=== PATIENT | male | born 1950 | race Caucasian/White ===

== ENCOUNTER 2016-07-18 16:39 | Inpatient (IN) | payer OTHER ==
--- NOTE | ~2016-07-18 | HP ---
Unit #: [id number] #: [id number] Patient: TRAVIS STOVALL [id number] [facility]. [place], [place] [address] [id number] I MR#: [id number] NAME: TRAVIS STOVALL. ROOM: 10987 Age: 66 Sex: M Admission Date: 07/18/2016 : 1950 Attending Physician: Holly Syed M.D. Primary Care Physician: Rufino Jacob M.D. HISTORY AND PHYSICAL CHIEF COMPLAINT Breakthrough seizures, weakness. 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 On workup, the patient was found to have massive pulmonary embolism, underwent "radiation," started on chronic anticoagulation, currently on Xarelto. He lives at home with a nephew and niece, as per him. He said he had a seizure today and was brought to the emergency room here for breakthrough seizures. The patient had a CT scan initially, which showed questionable petechial hemorrhage in the right parietal lobe lesion, recommend further MRI. MRI was done but secondary to motion artifact they did not rule out intracranial bleed. They recommended repeat MRI in the morning. We discussed with the radiologist regional psychiatric director. They recommend repeat MRI. The patient is otherwise alert, awake. He is denying any complaint right now. No chest pain. No cough. No fever. No chills. PAST MEDICAL HISTORY 1. History of seizures. 2. History of non-small cell lung cancer with metastasis to brain status post chemoradiation, follows with Dr. Jarrett. 3. History of COPD. 4. History of hypertension in the past. 5. History of GERD. 6. History of massive pulmonary embolism in February requiring IVC filter placement. 7. History of DVT. PAST SURGICAL HISTORY 1. History of cholecystectomy. 2. Bronchoscopy. 3. History of IVC filter. SOCIAL HISTORY The patient has history of 30 pack-year smoking but quit smoking. Currently lives at home with a niece and nephew. FAMILY HISTORY Noncontributory. ALLERGIES No known drug allergies. Unit #: [id number] #: [id number] Patient: TRAVIS STOVALL MEDICATIONS FROM HOME 1. DuoNeb q.6 hours. 2. Florastor 250 mg b.i.d. 3. Dexamethasone 4 mg b.i.d. 4. Depakote 500 b.i.d. 5. Vimpat 50 mg b.i.d. 6. Keppra 1,500 mg b.i.d. 7. Lipitor 10 mg daily. 8. Protonix 40 mg daily. 9. Midodrine 5 mg 3 tablets daily. 10. Also, the patient is on Xarelto. Will hold Xarelto at this time. NOTE: Currently medications are not available. Medications from February are above. REVIEW OF SYSTEMS CONSTITUTIONAL: No fever. No chills. CARDIOVASCULAR: No chest pain. No diaphoresis. PULMONARY: No cough. No wheezing. GI: No nausea or vomiting. PHYSICAL EXAMINATION GENERAL: Middle-aged man lying in bed comfortably, currently not in any distress. He is alert, awake, oriented x2. CURRENT VITALS: Temperature - afebrile. Heart rate 80, respirations 16, blood pressure 118/76. HEENT: Pupils are equal and reactive to light. Head is normocephalic and atraumatic. NECK: Neck is supple. No JVD. Trachea midline. HEART: S1, S2. Regular rate and rhythm. LUNGS: Poor air entry but no rhonchi, no wheezing. ABDOMEN: Abdomen is soft, nontender. EXTREMITIES: Inspection is normal. No cyanosis. No clubbing. No edema. DIAGNOSTIC STUDIES LABORATORY WORKUP: UA is unremarkable. Glucose 129. Troponin less than 0.05. Chemistry - Sodium 138, potassium 3.7, glucose 113, BUN 13, creatinine 0.8. LFTs within normal limits. INR is 1.1. White count is 6.8, hemoglobin 13, hematocrit 39, platelets 157. CARDIOVASCULAR: EKG - Sinus tachycardia. IMAGING: CT scan - No new abnormality. They suspect questionable hemorrhage in right parietal lobe lesion. MRI - Nondiagnostic. ASSESSMENT AND PLAN 1. Breakthrough seizures. Will continue home medications of Keppra, Vimpat and Depakote. Ask neurology to see. 2. Abnormal CT scan with possible petechial hemorrhage right parietal lobe lesion. MRI was not diagnostic. Will admit to rule out intracranial bleed with repeat MRI in the morning. Hold Xarelto at this time. 3. History of non-small cell lung cancer with metastasis to brain status post chemoradiation. 4. History of massive pulmonary embolism and DVT status post IVC filter, Unit #: [id number] #: [id number] Patient: TRAVIS STOVALL on Xarelto. 5. History of COPD. 6. History of GERD. Dictated by Khanh Becker/claudia TD: 07/19/2016 08:15 JOB #: [id number] HISTORY AND PHYSICAL X X HISTORY AND PHYSICAL
--- NOTE | ~2016-07-18 | CR72 ---
[facility] A Service of [facility] & [facility] RADIOLOGY TEXT RESULTS PATIENT: TRAVIS STOVALL LOCATION: [facility] [id number] : [birth year] UNIT #: [id number] AGE: [address]: Holly Syed MD SEX: M ORDER DR: [id number] [facility] [address] [place], [place] [address] [id number] I MR#: [id number] Acc #: [id number] NAME: TRAVIS STOVALL. : 1950 SEX: M STUDY DATE/TIME: 07/19/2016 19:25 UNIT: [facility] ROOM: 81413 STUDY DESCRIPTION: CR Chest Single View Portable Attending Physician: Holly Syed M.D. Ordering Physician: Wes Villatoro M.D. Primary Care Physician: Rufino Jacob M.D. MEDICAL IMAGING REPORT This report is preliminary unless electronic signature is present EXAM Portable chest HISTORY Congestion today FINDINGS Compared to 04/24/2016, there is progressive volume loss in the left hemithorax with mild mediastinal shift to the left suggesting at least partial atelectasis of the left lower lung. There is also increased left perihilar and left upper mediastinal density which could be secondary to mass or adenopathy. Small to moderate-sized left pleural effusion has increased in size. The right lung is clear. The right IJ port catheter tip is in the mid SVC. Dictated by... Jairo Lyons M.D. THIS IS AN ELECTRONICALLY VERIFIED REPORT Jairo Lyons M.D. at 07/20/2016 1:57 PM DFL/to TD: 07/20/2016 11:56 JOB #: [id number] MEDICAL IMAGING REPORT COPY
--- NOTE | ~2016-07-18 | DS ---
Unit #: [id number] #: [id number] Patient: TRAVIS STOVALL [id number] [place], [place] [address] [id number] I MR#: [id number] NAME: TRAVIS STOVALL ROOM: [facility] Age: 66 Sex: M Admission Date: 07/18/2016 : 1950 Discharge Date: 07/21/2016 Attending Physician: Kenney Cee M.D. Primary Care Physician: Rufino Jacob M.D. DISCHARGE SUMMARY CONSULTANTS 1. Dr. Jarrett, Oncology. 2. Dr. Montgomery, Neurology. ADMITTING DIAGNOSIS Breakthrough seizures. DISCHARGE DIAGNOSES 1. Breakthrough seizures. 2. Hospice. HISTORY OF PRESENTING ILLNESS/HOSPITAL COURSE Patient is a 66-year-old male with a past medical history of nonsmall cell lung cancer with metastasis to the brain, history of COPD, history of PE, on anticoagulation, status post radiation, who presented to the emergency room with the chief complaint of breakthrough seizures. He did have an MRI for evaluation of brain mets during the hospital course. During the hospital course, he was seen by Neurology and Oncology. Due to his poor prognosis, patient and his family finally decided to make him Hospice. On the , he was discharged to Hospice, and Hospice protocol was initiated. Dictated by.Khanh Zavala/cruz TD: 09/17/2016 14:06 JOB #: [id number] DISCHARGE SUMMARY Page 1 of 1 X X DISCHARGE SUMMARY
--- NOTE | ~2016-07-18 | MR18 ---
[facility] A Service of [facility] & [facility] RADIOLOGY TEXT RESULTS PATIENT: TRAVIS STOVALL LOCATION: [facility] [id number] : [birth year] UNIT #: [id number] AGE: [address]: Holly Syed MD SEX: M ORDER DR: [id number] [facility] [address] [place], [place] [address] [id number] I MR#: [id number] Acc #: [id number] NAME: TRAVIS STOVALL. : 1950 SEX: M STUDY DATE/TIME: 07/18/2016 20:43 UNIT: [facility] ROOM: 12962 STUDY DESCRIPTION: MR Brain Wo Contrast Attending Physician: Holly Syed M.D. Primary Care Physician: Rufino Jacob M.D. MRI CENTER REPORT This report is preliminary unless electronic signature is present. EXAM Brain MRI without HISTORY Breakthrough seizures known metastatic disease from non-small cell lung cancer repeat MRI due to motion thallium and Ativan given per technologist but patient still combative. COMMENTS Noncontrast MRI brain obtained on a 1.5T system. It is again motion limited despite sedation as indicated above. Comparison is made to the study from last evening with and without contrast. There is less motion on the current study but contrast was not re-administered and therefore the current study does not reassess well the intracranial metastatic disease. Please refer back to last night's report. Nothing to suggest a recent ischemic insult. Patient has known metastasis to the right posterior frontal right anterior parietal lobe seen about 1.8 cm in diameter on this study with surrounding vasogenic edema. There is mild local mass effect but there is no midline shift. There is no hydrocephalus. The known metastasis in the right cerebellar hemisphere seen as an area of vasogenic edema. The known right temporal lobe metastasis is not seen well on a noncontrast study. No extraaxial fluid collection. There is a component of preexisting probable sequelae of small vessel disease. The major intracranial flow voids are maintained. The mastoid air cells show small amount of fluid or inflammatory change on the right. There is some mucosal disease and partial opacification of the paranasal sinuses with tiny air-fluid levels. Patient has had cataract surgery on the right. No gross acute intracranial hemorrhage. IMPRESSION 1. Noncontrast MRI brain obtained again with significant motion despite sedation. Lack of contrast limits evaluation for intracranial metastatic disease. No significant change appreciated on comparison [facility] A Service of [facility] & [facility] RADIOLOGY TEXT RESULTS PATIENT: TRAVIS STOVALL LOCATION: [facility] [id number] : [birth year] UNIT #: [id number] AGE: [address]: Holly Syed MD SEX: M ORDER DR: to last evening's study. The largest metastasis is again seen in the right posterior frontal right anterior parietal lobe with surrounding vasogenic edema but no midline shift and there is nothing to suggest a recent ischemic insult. If imaging to restage the patient's malignancy is needed it is best performed when the patient is able to cooperate as a with and without contrast study. This does not need to be done as an emergent procedure. Dictated by... Lizy Jimenez M.D. THIS IS AN ELECTRONICALLY VERIFIED REPORT Lizy Jimenez M.D. at 07/20/2016 6:19 AM JUAN/bryan TD: 07/19/2016 22:32 JOB #: [id number] MRI CENTER REPORT COPY
--- NOTE | ~2016-07-18 | MR17 ---
[facility]. [facility] A Service of [facility] & [facility] RADIOLOGY TEXT RESULTS PATIENT: TRAVIS STOVALL LOCATION: [address] [place] [address]- : [birth year] UNIT #: [id number] AGE: [address]: Kenney Cee MD SEX: M ORDER DR: [id number] [facility] [address] [place], [place] [address] [id number] I MR#: [id number] Acc #: [id number] NAME: TRAVIS STOVALL : 1950 SEX: M STUDY DATE/TIME: 07/18/2016 20:43 UNIT: [facility] ROOM: 37530 STUDY DESCRIPTION: MR Brain WWo Contrast Attending Physician: Holly Syde M.D. Ordering Physician: Carolann Morales M.D. Primary Care Physician: Rufino Jacob M.D. MRI CENTER REPORT This report is preliminary unless electronic signature is present. EXAM MRI brain with and without. DATE OF EXAM 07/18/2016 HISTORY Known intracranial metastatic disease from lung cancer with weakness and seizure today. COMMENT MRI of the brain was attempted prior to and during the intravenous administration of 20 mL of MultiHance. This is a very motion limited exam. COMPARISON STUDIES Comparison is made to the exam from 06/05/2016. FINDINGS There is nothing to suggest a recent ischemic insult on the diffusion series. Redemonstrated is the known mass lesion centered in the right posterior frontal lobe with the rim like enhancement and measuring about 2.2 cm AP dimension. On comparison to the prior study, it is probably slightly larger measuring 1.8 cm previously but it is difficult to compare accurately because of motion on the current exam. There is associated surrounding vasogenic edema in the right posterior frontal and right anteroparietal lobes. This is similar to prior. Also redemonstrated is a small ring enhancing metastasis right cerebellar hemisphere about 7 mm in diameter. It is not appreciably changed in size. The associated vasogenic edema is more conspicuous, and may be slightly worse. Previously noted right anterior temporal lobe lesion is poorly seen on the current study perhaps 8 mm dimension. No definitely new intracranial STS. [facility] A Service of [facility] & [facility] RADIOLOGY TEXT RESULTS PATIENT: TRAVIS STOVALL LOCATION: [facility] 466-01 : [birth year] UNIT #: [id number] AGE: [address]: Kenney Cee MD SEX: M ORDER DR: metastases are seen on this very limited exam. Otherwise, the major intracranial flow voids are maintained. The patient has had cataract surgery on the right. There is mild mucosal disease in the paranasal sinuses. The mastoid air cells are clear. There is no extraaxial fluid collection, and there is no midline shift or hydrocephalus. IMPRESSION Redemonstration of known intracranial metastatic disease. The current study is unfortunately quite limited by patient motion. The largest lesion is again identified at the right posterior frontal and right anterior parietal lobe. It measures about 2.2 cm in diameter currently as compared to 1.8 cm in diameter previously it may be slightly larger, but again the motion makes it difficult to accurately compare the current prior study. Redemonstrated is surrounding vasogenic edema similar to prior. No definitely new intracranial metastases seen but if restaging is indicated, I would consider repeating this examination when the patient is better able to cooperate. Also redemonstrated is the known small lesion in the right cerebellar hemisphere, and a small lesion at the anterior aspect of right temporal lobe. No evidence for a recent ischemic insult. No midline shift downward herniation or hydrocephalus. No extraaxial fluid collection. Dictated by... Lizy Jimenez M.D. THIS IS AN ELECTRONICALLY VERIFIED REPORT Lizy Jimenez M.D. at 07/21/2016 11:37 AM JUAN/yonatan TD: 07/19/2016 19:50 JOB #: [id number] MRI CENTER REPORT COPY
--- NOTE | ~2016-07-18 | CO ---
Unit #: [id number] #: [id number] Patient: TRAVIS STOVALL [id number] [facility] [address]. [place], [place] [address] [id number] Dyan MR#: [id number] NAME: TRAVIS STOVALL. ROOM: 466 Age: 66 Sex: M Admission Date: 07/18/2016 : 1950 Attending Physician: Kenney Cee M.D. Primary Care Physician: Rufino Jacob M.D. Requesting Physician: Holly Syed M.D. Consultation Date: 07/19/2016 CONSULTATION REPORT REASON FOR CONSULTATION Seizure. PATIENT IDENTIFICATION This is a 66-year-old apparently right-handed white male, who is evaluated in Room ER12 at [facility]. SOURCE OF INFORMATION The medical records and my discussion with the patient's sister. I have seen this gentleman on 12/26/2015. PROBLEM LIST 1. History of seizures. 2. History of non-small cell lung cancer with metastasis to the brain, status post chemo radiation and followed by Dr. Jarrett. 3. History of COPD. 4. Hypertension. 5. GERD. 6. History of massive pulmonary embolism in February requiring IVC filter. 7. History of DVT. 8. History of cholecystectomy and bronchoscopy. HISTORY OF PRESENT ILLNESS This is a 66-year-old gentleman with history of non-small cell lung cancer with metastasis to the brain and other history. He was here in 01/2016 or 02/2016. On workup, he was found to have metastatic disease to the brain. He had seizures. He was on Keppra and he was supposedly started on Vimpat 50 b.i.d. and the plan was to follow up with someone, but I am not sure whom he is following up with. He continues to be on Vimpat 50 mg b.i.d. and never advanced and he was previously on Depakote 1500 mg b.i.d., but for some reason, he is only on 500 b.i.d. His Depakote levels still was 56 and I am not sure why he was it dropped. His white count and platelets are okay, but his sister tells me that he has been in and out of the hospital with seizures. He goes to the [place] and now they are considering via hospice. He came in with multiple seizures. He is now being given 10 mg of diazepam and he is not really responsive. His MRI continues to show brain lesions, multiple metastatic, but maybe Unit #: [id number] #: [id number] Patient: TRAVIS STOVALL some response to the chemo radiation. When I saw him, he respond to pain somehow, but he continues to have focal twitching of the left leg, possible focal seizure. Again, exam is very questionable because of his sedation. PAST MEDICAL HISTORY As discussed above. PAST SURGICAL HISTORY As discussed above. ALLERGIES None. HOME MEDICATIONS DuoNeb q.6 hours, Florastor 250 mg b.i.d., dexamethasone 4 mg b.i.d., Depakote 500 mg b.i.d., Vimpat 50 mg b.i.d., Keppra 1500 mg b.i.d., Lipitor 10 mg daily, Protonix 40 mg daily, midodrine 5 mg t.i.d., Xarelto. SOCIAL HISTORY The patient apparently is or single. He does not have children. I think he is a . He currently lives with his niece and nephew, but there is a sister who was involved in the care. He is a 30-pack year smoker, quit recently. FAMILY HISTORY No seizures or neurologic issue. REVIEW OF SYSTEMS Could not be obtained because of his present condition. PHYSICAL EXAMINATION VITAL SIGNS: Temperature 98.8, pulse is 75, respirations are 16, blood pressure 113/70, weight of 250 pounds, BMI was 33. NEUROLOGIC: The patient is obtunded. He only responds to painful stimuli. He is sedated. Cranial nerve examination; I did not see any rolling eye movements. Sluggish pupils. Did not see any ptosis. I did not see any nystagmus. I do not see any facial asymmetry. Hearing is questionable. Tongue was midline. I could not visualize oropharynx or uvula. Motor examination; minimal response was seen. He continues to have focal motor seizure in the left lower extremity and he is heavily sedated and may be postictal also. I could not get any reflexes. Toes are mute. Gait and coordination could not be evaluated. Sensory examination, very questionable at present state. DIAGNOSTIC STUDIES LABORATORY RESULTS: Reviewed. IMAGING STUDIES: Reviewed. IMPRESSION Multiple seizure and possible status epilepticus. I am going to go with IV Depacon 1000 mg, IV Keppra 1000 mg IV, Vimpat 100 mg and increase the Unit #: [id number] #: [id number] Patient: TRAVIS STOVALL Vimpat to 100 mg, increase the Depacon to 750 mg and see how things go and if he does not improve, I will put him on Cerebyx drip also. The family is considering via hospice and that may be the right way to go because he has been going downhill since his last visit and with non-small cell lung cancer with metastases and poor prognostic picture. He is no good quality of life. He is dependent, so we will see how things go. I will keep you informed. Call me for any other questions, issues, or concerns. Dictated by... Khanh Blackburn/janae TD: 07/21/2016 05:44 JOB #: [id number] CONSULTATION REPORT X Francie Montgomery MD X CONSULTATION REPORT
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
--- NOTE | ~2016-07-18 | EKG ---
PATIENT: TRAVIS STOVALL UNIT #: [id number] Ventricular Rate: 50 BPM Atrial Rate: 50 BPM P-R Interval: 158 ms QRS Duration: 78 ms Q-T Interval: 454 ms QTC Calculation(Bezet): 413 ms P Timewell: 11 degrees Calculated R Timewell: -5 degrees Diagnosis Line: Sinus bradycardia Diagnosis Line: Otherwise normal ECG Diagnosis Line: When compared with ECG of 24-APR-2016 14:14, Diagnosis Line: Vent. rate has decreased BY 47 BPM Diagnosis Line: Inverted T waves have replaced nonspecific T wave Diagnosis Line: abnormality in Inferior leads Diagnosis Line: Confirmed by LORENA PLASENCIA MD ([id number]) on 07/18/2016 Diagnosis Line: 4:49:20 PM INTERPRETING MD: ERINN MALIK
[2016-07-18 16:37] LABS: BASOPHIL% 0.6 % (0-2.5); DIFF IND NO; EOSINOPHIL% 0.1 % (0.0-7.0); HEMATOCRIT 39.3 % (38.0-50.0); HEMOGLOBIN 13.3 gm/dL (13.0-16.0); LYMPHOCYTE# 0.6 X10e3 (1.0-3.5); LYMPHOCYTE% 8.8 % (17.0-45.0); MEAN CELL VOLUME 91.8 FL (83-96); MEAN CORPUSCULAR HEMOGLOBIN 31.2 PG (28-34); MEAN CORPUSCULAR HGB CONC 33.9 g/dL (30-36); MEAN PLATELET VOLUME 7.3 FL (6.5-11.5); MONOCYTE# 0.7 X10e3 (0-1.0); MONOCYTE% 9.9 % (3.0-12.0); NEUTROPHIL# 5.5 X10e3 (1.5-7.1); NEUTROPHIL% 80.6 % (40-75); PLATELET COUNT 157 X10e3 (140-420); RED BLOOD COUNT 4.28 X10e (3.90-5.60); RED CELL DISTRIBUTION WIDTH 14.6 % (11.0-15.5); WHITE BLOOD COUNT 6.8 X10e3 (4.0-10.5)
[~2016-07-18 16:39] MED LIST: ACETAMINOPHEN PO; ALBUTEROL17 GM INH; ATENOLOL50 MG PO; BREO ELLIPTA 11 EACH INH; CYANOCOBAL1000 MCG/M INJ; DELTASONE20 MG PO; DEPAKOTE (UD)250 MG PO; DEPAKOTE ER; DEPAKOTE ER PO; DEXAMETHASONE4 M1 PO; DEXAMETHASONE4 MG PO; FLORASTOR250 M1 PO; FOLIC ACID1 MG PO; IPRAT-ALBUT 0.5-3 ML INH; KEPPRA1000 MG PO; KEPPRA500 M2 PO; LEVAQUIN750 MG PO; LIPITOR PO; LOVENOX100 MG/ML INJ; OMNICEF300 M1 PO; PHENERGAN25 M1 PO; PHENERGAN25 MG PO; PRO-AMATINE5 MG PO; PROAIR RESPICL90 MCG INH; PROTONIX PO; QVAR7.3 G1 INH; SYMBICORT 80/46.9 G1 INH; SYMBICORT INH; TENORMIN50 MG PO; VIMPAT50 MG PO
[2016-07-18 16:51] LABS: INR 1.1; PROTHROMBIN TIME (PATIENT) 11.7 SECONDS (9.6-11.5)
[2016-07-18 17:08] LABS: ALBUMIN SERUM 3.3 g/dL (3.5-5.0); ALKALINE PHOSPHATASE 27 U/L (32-92); ALT (SGPT) 13 U/L (10-40); AST (SGOT) 13 U/L (10-42); BILIRUBIN, DIRECT 0.1 mg/dL (0.0-0.2); BILIRUBIN,INDIRECT 0.5 mg/dL (0.0-0.9); BILIRUBIN,TOTAL 0.6 mg/dL (0.2-2.0); BLOOD UREA NITROGEN 13 mg/dL (9-23); BUN/CREATININE RATIO 16.25; CALCIUM SERUM 8.8 mg/dL (8.4-10.2); CARBON DIOXIDE 28 mmol/L (22-31); CHLORIDE 101 mmol/L (100-111); CREATININE SERUM 0.8 mg/dL (0.6-1.4); DEPAKENE (VALPROIC ACID) 56 ug/mL (50-125); GLOM FILT RATE Estimated ABOVE60 mL/min (>60); GLUCOSE FASTING 113 mg/dL (70-110); POTASSIUM 3.7 mmol/L (3.5-5.1); PROTEIN TOTAL SERUM 5.5 g/dL (6.0-8.3); SODIUM 138 mmol/L (135-145)
[2016-07-18 17:10] LABS: POC - CKMB 1.4 ng/mL (0.0-7.9); POC - TROPONIN <0.05 ng/mL (<=0.05)
[2016-07-18 19:20] LABS: URINE SOURCE CLEAN CATCH
[2016-07-18 19:26] LABS: URINE APPEARANCE CLEAR; URINE BILIRUBIN NEG (NEG); URINE BLOOD NEG (NEG); URINE COLOR YELLOW; URINE GLUCOSE NEG (NEG); URINE KETONE NEG (NEG); URINE LEUKOCYTE ESTERASE NEG (NEG); URINE NITRATE NEG (NEG); URINE PH 6.5 (5-8); URINE PROTEIN NEG (NEG); URINE UROBILINOGEN 0.2 MG/DL (NEG)
[2016-07-18 19:31] LABS: CULTURE INDICATED? NO
[2016-07-18] MEDS ORDERED: DEXAMETHASONE4 MG PO (23:22)
[2016-07-18] MEDS ORDERED: XARELTO20 MG PO (23:23)
[2016-07-18] MEDS ORDERED: DITROPAN XL PO (23:23)
== END 2016-07-21 22:45 | DRG 100 ==
LOC: CED 16:39 → CEDOF 23:30 → C4C 07-20 16:36
PROVIDERS: Student in an Organized Health Care Education/Training Program
DX: G40.901 Epilepsy, unspecified, not intractable, with status epilepticus (principal); I61.1 Nontraumatic intracerebral hemorrhage in hemisphere, cortical; G93.6 Cerebral edema; C79.31 Secondary malignant neoplasm of brain; C34.90 Malignant neoplasm of unspecified part of unspecified bronchus or lung; J44.9 Chronic obstructive pulmonary disease, unspecified; Z87.891 Personal history of nicotine dependence; K21.9 Gastro-esophageal reflux disease without esophagitis; I10 Essential (primary) hypertension; E66.9 Obesity, unspecified; Z68.33 Body mass index [BMI] 33.0-33.9, adult; Z51.5 Encounter for palliative care; R62.7 Adult failure to thrive; Z86.711 Personal history of pulmonary embolism; Z95.818 Presence of other cardiac implants and grafts; Z90.49 Acquired absence of other specified parts of digestive tract
CPT/HCPCS: 36415; 70450; 70551; 70553; 71010; 80048; 80076; 80164; 81003; 82553; 82947; 84484; 85025; 85610; 85730; 87040; 93005; 94640; 94760; 94761; 96361; 96365; 96375; 99285; A9577; C9254; J1100; J1165; J1953; J2060; J2543; J3360; Q2009